=== PATIENT | female | born 1995 | race Two or more races ===

== ENCOUNTER 2025-02-13 14:42 | Emergency (ER) | payer OTHER ==
[~2025-02-13] VITALS: Ht 165.1 cm; Wt 99.8 kg
[2025-02-13] MEDS ORDERED: NASAL MIST126 ML (14:50)
[2025-02-13] MEDS ORDERED: ESCITALOPRA5 MG/5 ML (14:50)
[2025-02-13 14:53] VITALS: BP 116/71; O2SAT 98
[2025-02-13] MEDS ORDERED: KETOROLAC TROMETHAMINE 15 MG VIAL IM STA (16:11)
[2025-02-13] MEDS ORDERED: ORPHENADRINE CITRATE 30 MG/ML AMPUL IM STA (16:12)
[2025-02-13] MEDS ORDERED: ORPHENADRINE CITRATE 30 MG/ML AMPUL ONE (16:20)
[2025-02-13] MEDS ORDERED: KETOROLAC TROMETHAMINE 30 MG VIAL ONE (16:20)
== END 2025-02-13 18:30 | disposition home or self-care (01) ==
LOC: ER 14:43 → EDBD 14:43 → ER 17:17
DX: M62.838 Other muscle spasm (principal); Z91.013 Allergy to seafood